=== PATIENT | female | born 1975 | race Caucasian/White ===

== ENCOUNTER 2017-03-15 20:04 | Emergency (ER) | payer SELFPAY ==
[~2017-03-15] VITALS: Ht 157.5 cm; Wt 87.1 kg
--- NOTE | 2017-03-15 20:22 | NUR ---
PT TO ER BED 09. C/O HEADACHE S/P UNWITNESSED SYNCOPE AT HOME AT DINNER TIME. PT DOES NOT REMEMBER WHAT HAPPEN. NO OBVIOUS TRAUMA. PT DENIES CHEST PAIN. GOWNED AND PLACED ON MONITOR. NAD NOTED. AWAITING MD THOMSON.
--- NOTE | 2017-03-15 20:40 | NUR ---
JUANA URIBE AT BEDSIDE FOR EVAL.
--- NOTE | 2017-03-15 20:55 | NUR ---
IV LINE STARTED BLOOD DRAWN AND SENT TO LAB.
[2017-03-15] MEDS ORDERED: IV NS 0.9% 1,000 ML BAG IV ONE (21:00)
[2017-03-15 21:02] LABS: BASOPHILS % (AUTO) 0.5 % (0.0-2.0); EOSINOPHILS % (AUTO) 0.6 % (0.0-6.0); HEMATOCRIT 42 % (33-45); HEMOGLOBIN 13.8 g/dL (11.5-14.8); LYMPHOCYTES # (AUTO) 1.9 /CMM (0.8-4.8); LYMPHOCYTES % (AUTO) 28.8 % (20.0-44.0); MEAN CORPUSCULAR HEMOGLOBIN 27 PG (26.0-33.0); MEAN CORPUSCULAR HGB CONC 33 g/dl (31.0-36.0); MEAN CORPUSCULAR VOLUME 84 fL (82-100); MONOCYTES # (AUTO) 0.5 /CMM (0.1-1.30); MONOCYTES % (AUTO) 7.1 % (2.0-12.0); NEUTROPHILS # (AUTO) 4.2 /CMM (1.8-8.9); PLATELET COUNT (AUTO) 183 /CMM (150-450); RDW COEFFICIENT OF VARIATION 13.4 (11.5-15.0); RED BLOOD CELL COUNT(AUTO) 5.02 MIL/uL (4.0-5.2); WHITE BLOOD COUNT (AUTO) 6.7 K/uL (4.3-11.0)
[2017-03-15 21:06] LABS: APPEARANCE,URINE Clear (CLEAR); BILIRUBIN,URINE SMALL (NEGATIVE); BLOOD, URINE Moderate Ery/uL (NEGATIVE); COLOR,URINE Yellow (YELLOW); KETONES,URINE 15 (NEGATIVE); LEUKOCYTE ESTERASE ,URINE Small (NEGATIVE); NITRITE, URINE Negative (NEGATIVE); PROTEIN,URINE 100 mg/dl (NEGATIVE); UGLUCOSE Negative (NEGATIVE)
--- NOTE | 2017-03-15 21:06 | NUR ---
RADIOLOGY AT BEDSIDE FOR CHEST XRAY.
[2017-03-15 21:23] LABS: BACTERIA,URINE Few /HPF (None Seen); MUCUS,URINE Few /LPF (None Seen); SQUAMOUS EPITHELIAL CELL,UR Many /HPF (None Seen); URINE AMORPHOUS URATE Moderate /HPF (None Seen)
[2017-03-15 21:24] LABS: PREGNANCY TEST URINE QUAL NEGATIVE (NEGATIVE)
[2017-03-15 21:47] LABS: BILIRUBIN,DIRECT 0.1 mg/dL (0.0-0.2); BILIRUBIN,TOTAL 0.6 mg/dL (0.2-1.0); CALCIUM, SERUM 8.5 mg/dL (8.5-10.1); CREATININE 0.8 mg/dL (0.6-1.3); POTASSIUM 3.9 mmol/L (3.5-5.1); TOTAL PROTEIN, SERUM 7.6 g/dL (6.4-8.2)
[2017-03-15 22:55] VITALS: BP 111/76
--- NOTE | 2017-03-15 22:55 | NUR ---
Patient discharged to home in stable condition. Written and verbal after care instructions given. Patient verbalizes understanding of instruction.IV removed. Catheter intact and site benign. Pressure and 4x4 applied to site. No bleeding noted.
== END 2017-03-15 22:58 | disposition home or self-care (01) ==
LOC: ER 20:04
DX: N39.0 Urinary tract infection, site not specified (principal); Z88.6 Allergy status to analgesic agent
CPT/HCPCS: 36415; 71010; 80048; 80076; 81001; 83690; 84703; 85025; 93005; 99285; A4606; J7030; Z7610; 81000-TC

== ENCOUNTER 2018-01-17 21:30 | Emergency (ER) | payer SELFPAY ==
[~2018-01-17] VITALS: Ht 154.9 cm; Wt 92.5 kg
[2018-01-17 21:35] VITALS: BP 121/74
== END 2018-01-17 23:51 | disposition home or self-care (01) ==
LOC: ER 21:30
DX: M25.462 Effusion, left knee (principal); Z88.5 Allergy status to narcotic agent
CPT/HCPCS: 73030; 73564; 73630; 99284; A4606; Z7610

== ENCOUNTER 2018-05-13 23:38 | Emergency (ER) | payer SELFPAY ==
[~2018-05-13] VITALS: Ht 160 cm; Wt 96.2 kg
--- NOTE | 2018-05-14 | NUR ---
TO ER BED 13 C/O DIFFICULTY BREATHING AND FEELING LIGHT HEADED X 2 DAYS. AA/OX4. NO S/S SOB. SPEAKING FULL SENTENCES. SKIN PINK, WARM, DRY. EQUAL FACIAL SYMMETRY. EQUAL RECONCILIATION CLERK. MOVES ALL EXTREMITIES WELL. AMBULATED TO HOSPITAL BED WITH STABLE GAIT. NAD. VSS. STABLE CONDITION. WILL CONTINUE TO MONITOR.
[2018-05-14] MEDS ORDERED: ONDANSETRON HCL/PF 4 MG/2 ML VIAL ONE (00:23)
[2018-05-14] MEDS ORDERED: ONDANSETRON HCL/PF - ER 4 MG/2 ML VIAL IV ONE (00:30)
[2018-05-14] MEDS ORDERED: IV NS 0.9% 1,000 ML BAG IV ONE (00:30)
[2018-05-14 00:42] LABS: BASOPHILS % (AUTO) 0.3 % (0.0-2.0); EOSINOPHILS % (AUTO) 1.4 % (0.0-6.0); HEMATOCRIT 39 % (33-45); HEMOGLOBIN 12.8 g/dL (11.5-14.8); LYMPHOCYTES # (AUTO) 2.3 /CMM (0.8-4.8); LYMPHOCYTES % (AUTO) 29.4 % (20.0-44.0); MEAN CORPUSCULAR HGB CONC 32 g/dl (31.0-36.0); MEAN CORPUSCULAR VOLUME 83 fL (82-100); MONOCYTES # (AUTO) 0.3 /CMM (0.1-1.30); MONOCYTES % (AUTO) 4.3 % (2.0-12.0); NEUTROPHILS % (AUTO) 64.6 % (43.0-81.0); PLATELET COUNT (AUTO) 210 /CMM (150-450); RED BLOOD CELL COUNT(AUTO) 4.73 MIL/uL (4.0-5.2); WHITE BLOOD COUNT (AUTO) 7.7 K/uL (4.3-11.0)
[2018-05-14 00:51] LABS: CALCIUM, SERUM 8.8 mg/dL (8.5-10.1); CARBON DIOXIDE 28 mmol/L (21-32); CHLORIDE 107 mmol/L (98-107); CREATININE 0.9 mg/dL (0.6-1.3); GLUCOSE 115 mg/dL (74-106); POTASSIUM 3.5 mmol/L (3.5-5.1); SODIUM SERUM 142 mmol/L (136-145); UREA NITROGEN, BLOOD 10 mg/dL (7-18)
[2018-05-14 00:56] LABS: TROPONIN I < 0.017 ng/mL (0.00-0.056)
[2018-05-14 01:05] LABS: ALANINE AMINOTRANSFERASE 32 U/L (12-78); ALBUMIN 3.9 g/dL (3.4-5.0); ALKALINE PHOSPHATASE 57 U/L (46-116); ASPARTATE AMINOTRANSFERASE 16 U/L (15-37); BILIRUBIN,DIRECT 0.1 mg/dL (0.0-0.2); BILIRUBIN,TOTAL 0.5 mg/dL (0.2-1.0); INR 0.9 (0.87-1.13); TOTAL PROTEIN, SERUM 7.8 g/dL (6.4-8.2)
[2018-05-14 01:06] LABS: B-TYPE NATRIURETIC PEPTIDE 8 PG/ML (0-125)
--- NOTE | 2018-05-14 01:28 | NUR ---
BROUGHT TO CT
--- NOTE | 2018-05-14 01:54 | NUR ---
Patient is resting comfortably in bed with eyes closed. Easily aroused. VSS
--- NOTE | 2018-05-14 02:25 | NUR ---
Patient discharged to home in stable condition. Written and verbal after care instructions given. Patient verbalizes understanding of instruction. IV removed. Catheter intact and site benign. Pressure and 4x4 applied to site. No bleeding noted. AMBULATED WITH STEADY GAIT. NAD. VSS.
[2018-05-14 02:26] VITALS: BP 112/71
== END 2018-05-14 02:27 | disposition home or self-care (01) ==
LOC: ER 23:41
DX: R42 Dizziness and giddiness (principal); L30.9 Dermatitis, unspecified; E86.0 Dehydration; R94.31 Abnormal electrocardiogram [ECG] [EKG]; Z88.5 Allergy status to narcotic agent; Z98.890 Other specified postprocedural states
CPT/HCPCS: 36415; 70450; 71045; 80048; 80076; 83880; 84484; 84702; 85025; 85378; 85730; 93005; 96361; 96374; 99285; J2405 ×2; J7030; A4606; Z7610

== ENCOUNTER 2021-04-05 03:26 | Emergency (ER) | payer SELFPAY ==
[~2021-04-05] VITALS: Ht 154.9 cm; Wt 72.6 kg
--- NOTE | 2021-04-05 03:45 | NUR ---
URINE COLLECTED AND SENT TO LAB
--- NOTE | 2021-04-05 03:50 | NUR ---
IV LINE ESTABLISHED AT R AC 20G, BLOOD DRAWN AND SENT TO LAB
[2021-04-05 04:00] LABS: BASOPHILS % (AUTO) 0.5 % (0.0-2.0); EOSINOPHILS % (AUTO) 1.4 % (0.0-6.0); HEMATOCRIT 37 % (33-45); HEMOGLOBIN 12.7 g/dL (11.5-14.8); LYMPHOCYTES # (AUTO) 1.9 K/uL (0.8-4.8); LYMPHOCYTES % (AUTO) 26.7 % (20.0-44.0); MEAN CORPUSCULAR HGB CONC 34 g/dl (31.0-36.0); MEAN CORPUSCULAR VOLUME 82 fL (82-100); MONOCYTES # (AUTO) 0.3 K/uL (0.1-1.30); MONOCYTES % (AUTO) 4.6 % (2.0-12.0); NEUTROPHILS # (AUTO) 4.8 K/uL (1.8-8.9); NEUTROPHILS % (AUTO) 66.8 % (43.0-81.0); PLATELET COUNT (AUTO) 245 K/uL (150-450); RED BLOOD CELL COUNT(AUTO) 4.57 MIL/uL (4.0-5.2); WHITE BLOOD COUNT (AUTO) 7.1 K/uL (4.3-11.0)
[2021-04-05] MEDS ORDERED: KETOROLAC TROMETHAMINE INJ 30 MG/ML VIAL IV ONE (04:00)
[2021-04-05] MEDS ORDERED: ONDANSETRON HCL/PF 4 MG/2 ML VIAL IVP ONE (04:00)
[2021-04-05] MEDS ORDERED: IV NS 0.9% 500 ML BAG IV ONE (04:00)
[2021-04-05] MEDS ORDERED: KETOROLAC TROMETHAMINE INJ 30 MG/ML VIAL ONE (04:02)
[2021-04-05] MEDS ORDERED: ONDANSETRON HCL/PF 4 MG/2 ML VIAL ONE (04:02)
[2021-04-05 04:10] LABS: CALCIUM, SERUM 8.7 mg/dL (8.5-10.1); CREATININE 0.8 mg/dL (0.6-1.3); POTASSIUM 3.3 mmol/L (3.5-5.1)
[2021-04-05 04:14] LABS: BILIRUBIN,URINE SMALL (NEGATIVE); COLOR,URINE YELLOW (YELLOW); LEUKOCYTE ESTERASE ,URINE Small (NEGATIVE); NITRITE, URINE Negative (NEGATIVE); PROTEIN,URINE Negative (NEGATIVE); UGLUCOSE Negative (NEGATIVE)
[2021-04-05 04:16] LABS: ALBUMIN 3.7 g/dL (3.4-5.0); BILIRUBIN,DIRECT 0.1 mg/dL (0.0-0.2); BILIRUBIN,TOTAL 0.3 mg/dL (0.2-1.0); TOTAL PROTEIN, SERUM 7.7 g/dL (6.4-8.2)
[2021-04-05 04:31] LABS: BACTERIA,URINE Moderate /HPF (None Seen); SQUAMOUS EPITHELIAL CELL,UR Few /HPF (None Seen); URINE AMORPHOUS PHOSPHATES Few /HPF (None Seen)
[2021-04-05 04:32] LABS: MUCUS,URINE Few /LPF (None Seen)
--- NOTE | 2021-04-05 04:50 | NUR ---
PT TO RADIOLOGY FOR CT ABD PELVIS
--- NOTE | 2021-04-05 05:04 | NUR ---
PT BACK TO ED BED 9
[2021-04-05] MEDS ORDERED: CEPH500C2 PO (06:06)
--- NOTE | 2021-04-05 06:20 | NUR ---
Patient discharged to home in stable condition. Written and verbal after care instructions given. Patient verbalizes understanding of instruction. Patient ambulatory with a steady gait
[2021-04-05 06:25] VITALS: BP 121/70
== END 2021-04-05 06:20 | disposition home or self-care (01) ==
LOC: ER 03:30
DX: N39.0 Urinary tract infection, site not specified (principal); R10.11 Right upper quadrant pain; Z90.49 Acquired absence of other specified parts of digestive tract; Z88.6 Allergy status to analgesic agent; Z60.2 Problems related to living alone
CPT/HCPCS: 36415; 74176; 80048; 80076; 81001; 83690; 84703; 85025; 85730; 87086; 96361; 96374; 96375; 99284; J1885; J2405; J7030; J7040

== ENCOUNTER 2022-03-15 09:04 | Emergency (ER) | payer SELFPAY ==
[~2022-03-15] VITALS: Ht 167.6 cm; Wt 74.8 kg
[~2022-03-15 09:04] MED LIST: CEPH500C2 PO
--- NOTE | 2022-03-15 09:11 | NUR ---
CAME IN FOR ABDOMINAL PAIN SINCE YESTERDAY 05/04 PS, +NAUSEA, VOMITING, DIARRHEA. "HAD SUSHI YESTERDAY". TO ER BED 6, HOOKED TO MONITOR, VSS. CHANGED TO HOSP GOWN, WARM BLANKET PROVIDED. AWAITING MD THOMSON
--- NOTE | 2022-03-15 09:24 | NUR ---
DR HERRERA AT BEDSIDE
[2022-03-15] MEDS ORDERED: ONDANSETRON HCL/PF 4 MG/2 ML VIAL ONE (09:42)
[2022-03-15] MEDS ORDERED: DICYCLOMINE HCL 10 MG CAPSULE PO ONE ×2 (09:43→10:00)
[2022-03-15 09:46] LABS: BILIRUBIN,URINE SMALL (NEGATIVE); COLOR,URINE DARK YELLOW (YELLOW); LEUKOCYTE ESTERASE ,URINE TRACE (NEGATIVE); NITRITE, URINE NEGATIVE (NEGATIVE); PH,URINE 5.5 (5.0-8.0); PROTEIN,URINE 30 mg/dl (NEGATIVE); UGLUCOSE NEGATIVE (NEGATIVE); UROBILINOGEN,URINE 0.2 EU/dL (0.2)
[2022-03-15 09:51] LABS: BASOPHILS % (AUTO) 0.1 % (0.0-2.0); EOSINOPHILS % (AUTO) 0.3 % (0.0-6.0); HEMATOCRIT 42 % (33-45); HEMOGLOBIN 13.9 g/dL (11.5-14.8); LYMPHOCYTES # (AUTO) 0.9 K/uL (0.8-4.8); LYMPHOCYTES % (AUTO) 5.6 % (20.0-44.0); MEAN CORPUSCULAR HGB CONC 33 g/dl (31.0-36.0); MEAN CORPUSCULAR VOLUME 81 fL (82-100); MONOCYTES # (AUTO) 0.5 K/uL (0.1-1.30); MONOCYTES % (AUTO) 3.3 % (2.0-12.0); NEUTROPHILS # (AUTO) 14.9 K/uL (1.8-8.9); NEUTROPHILS % (AUTO) 90.7 % (43.0-81.0); PLATELET COUNT (AUTO) 223 K/uL (150-450); RED BLOOD CELL COUNT(AUTO) 5.18 MIL/uL (4.0-5.2); WHITE BLOOD COUNT (AUTO) 16.5 K/uL (4.3-11.0)
[2022-03-15 09:57] LABS: ALBUMIN 4.4 g/dL (3.4-5.0); BILIRUBIN,DIRECT 0.1 mg/dL (0.0-0.2); BILIRUBIN,TOTAL 0.6 mg/dL (0.2-1.0); CALCIUM, SERUM 8.8 mg/dL (8.5-10.1); CREATININE 0.8 mg/dL (0.6-1.3); POTASSIUM 3.7 mmol/L (3.5-5.1); TOTAL PROTEIN, SERUM 8.8 g/dL (6.4-8.2)
[2022-03-15] MEDS ORDERED: ONDANSETRON HCL/PF - ER 4 MG/2 ML VIAL IV ONE (10:00)
[2022-03-15] MEDS ORDERED: IV NS 0.9% 1,000 ML IV ONE (10:00)
[2022-03-15 11:11] LABS: BACTERIA,URINE Many /HPF (None Seen); SQUAMOUS EPITHELIAL CELL,UR Moderate /HPF (None Seen)
[2022-03-15 11:12] LABS: CALCIUM OXALATE CRYSTALS,UR Moderate /HPF (None Seen)
[2022-03-15] MEDS ORDERED: DICY10CA37 PO (11:48)
[2022-03-15] MEDS ORDERED: ONDA4TAB11 PO (11:48)
[2022-03-15 11:51] VITALS: BP 112/74
--- NOTE | 2022-03-15 11:51 | NUR ---
IV removed. Catheter intact and site benign. Pressure and 4x4 applied to site. No bleeding noted.Patient discharged to home in stable condition. Written and verbal after care instructions given. Patient verbalizes understanding of instruction.
== END 2022-03-15 11:53 | disposition home or self-care (01) ==
LOC: ER 09:12
DX: R10.84 Generalized abdominal pain (principal); R11.2 Nausea with vomiting, unspecified; R19.7 Diarrhea, unspecified; Z88.6 Allergy status to analgesic agent; Z60.2 Problems related to living alone; Z79.899 Other long term (current) drug therapy
CPT/HCPCS: 99283; 96374; 96361; 85025; 80048; 87086; 83690; 80076; 84703; 81001; 36415; J2405 ×2; J7030